=== PATIENT | male | born 1975 | race Caucasian/White ===

== ENCOUNTER 2021-12-24 09:47 | Outpatient (REF) | payer OTHER, SELFPAY ==
[2021-12-24 11:22] LABS: MANUAL DIFF FLAG NO
[2021-12-24 11:41] LABS: Basophils Absolute Auto 0.1 X10*3/uL (0.0-0.2); Basophils Percent Auto 0.7 % (0-2); Eosinophils Absolute Auto 0.2 X10*3/uL (0.0-0.4); Eosinophils Percent Auto 2.2 % (0-4); Hematocrit 42.3 % (42.0-52.0); Hemoglobin 13.7 g/dl (14.0-18.0); Imm Gran Abs Auto 0.03 X10*3/uL (0.00-0.03); Imm Gran Pct Auto 0.4 % (0.0-0.4); Lymphocytes Absolute Auto 1.7 X10*3/uL (1.2-4.9); Lymphocytes Percent Auto 25.7 % (20-40); Mean Corpuscular HGB Conc 32.4 g/dl (31.0-36.0); Mean Corpuscular Hemoglobin 31.6 pg (27.0-33.0); Mean Corpuscular Volume 97.5 fL (80.0-98.0); Mean Platelet Volume 9.8 fL (9.4-12.4); Monocytes Absolute Auto 0.7 X10*3/uL (0.1-1.2); Monocytes Percent Auto 9.8 % (2-11); Neutrophils Absolute Auto 4.1 x10*3/uL (2.0-8.3); Neutrophils Percent Auto 61.2 % (45-73); Platelet Count 356 X10*3/uL (160-400); Red Blood Count 4.34 X10*6/uL (4.60-5.80); Red Cell Distribution Width 12.8 % (11.0-16.0); White Blood Count 6.8 X10*3/uL (4.8-10.8)
[2021-12-24 11:50] LABS: Estimated Average Glucose 108 mg/dL; Hemoglobin A1c % 5.4 %
[2021-12-24 12:16] LABS: Prostate Specific Antigen Scr 0.49 ng/mL (<0.05-4.0); TSH reflex Free T4 0.26 uIU/mL (0.32-4.0)
[2021-12-24 12:25] LABS: Alanine Aminotransferase 30 U/L (0-40); Albumin Level 4.7 g/dL (3.5-5.0); Alkaline Phosphatase 61 U/L (39-117); Anion Gap 9 (12-20); Aspartate Amino Transferase 23 U/L (5-37); Bilirubin Total 0.5 mg/dL (0.0-1.0); Blood Urea Nitrogen 19 mg/dL (9-16); Calcium 10.1 mg/dL (8.4-10.2); Carbon Dioxide 30 mmol/L (22-29); Chloride 105 mmol/L (96-108); Cholesterol 268 mg/dL; Estimated Glomerular Filt Rate > 60; Glucose Fasting 106 mg/dL (60-99); HDL Cholesterol 65 mg/dL; LDL Cholesterol Calculated 162 mg/dl; Potassium 5.3 mmol/L (3.3-5.1); Sodium 139 mmol/L (135-145); Total Protein 7.8 g/dL (6.5-8.0); Triglycerides 209 mg/dL
[2021-12-24 13:01] LABS: Free T4 (Free Thyroxine) 0.78 ng/dL (0.71-1.85)
== END 2021-12-24 09:48 | disposition home or self-care (01) ==
LOC: HO.WFDLDS 09:47
PROVIDERS: Visit Provider Family Medicine
DX: Z00.00 Encounter for general adult medical examination without abnormal findings (principal); Z12.5 Encounter for screening for malignant neoplasm of prostate; R73.01 Impaired fasting glucose
CPT/HCPCS: 36415; 80053; 80061; 83036; 84153; 84439; 84443; 85025

== ENCOUNTER 2022-01-14 10:36 | Outpatient (REF) | payer OTHER, SELFPAY ==
--- NOTE | ~2022-01-14 | US_ITS ---
EXAMINATION: US THYROID CLINICAL INFORMATION: Nontoxic single thyroid nodule. COMPARISON: None TECHNIQUE: Linear transducer grayscale and color Doppler examination with attention to the region of the thyroid. FINDINGS: SIZE: Measurements of the thyroid lobes and nodules are given in sagittal, anteroposterior and transverse dimensions respectively. Right Thyroid Lobe: 6.0 x 1.5 x 1.9 cm, volume 8.9 mL. Parenchyma: The gland echotexture is homogeneous. Thyroid vascularity is normal. Left Thyroid Lobe: 5.5 x 1.4 x 1.7 cm, volume 6.8 mL. Parenchyma: The gland echotexture is homogeneous. Thyroid vascularity is normal. Isthmus: 0.2 cm in maximum AP dimension. No focal thyroid nodule is seen. NODES: No lymphadenopathy is seen in the tissue surrounding the thyroid gland. US/US thyroid IMPRESSION: Normal thyroid ultrasound.
== END 2022-01-14 10:37 | disposition home or self-care (01) ==
LOC: HO.HMGCX 10:36
PROVIDERS: Visit Provider Family Medicine
DX: E04.1 Nontoxic single thyroid nodule (principal)
CPT/HCPCS: 76536

== ENCOUNTER → 2022-03-07 09:55 | Outpatient (BNVA) | payer OTHER, SELFPAY | PROVIDERS: PCP Family Medicine; Referring Provider Family Medicine; Visit Provider Nurse Practitioner | DX: K92.1 Melena (principal); K21.9 Gastro-esophageal reflux disease without esophagitis; K58.0 Irritable bowel syndrome with diarrhea | CPT/HCPCS: 99202 ==

== ENCOUNTER 2022-03-25 11:09 | Outpatient (REF) | payer OTHER, SELFPAY ==
[2022-03-25 13:16] LABS: MANUAL DIFF FLAG NO
[2022-03-25 13:25] LABS: Basophils Absolute Auto 0.1 X10*3/uL (0.0-0.2); Basophils Percent Auto 0.9 % (0-2); Eosinophils Absolute Auto 0.2 X10*3/uL (0.0-0.4); Eosinophils Percent Auto 3.6 % (0-4); Hematocrit 41.1 % (42.0-52.0); Hemoglobin 13.3 g/dl (14.0-18.0); Imm Gran Abs Auto 0.01 X10*3/uL (0.00-0.03); Imm Gran Pct Auto 0.2 % (0.0-0.4); Lymphocytes Percent Auto 30.3 % (20-40); Mean Corpuscular HGB Conc 32.4 g/dl (31.0-36.0); Mean Corpuscular Hemoglobin 32.2 pg (27.0-33.0); Mean Corpuscular Volume 99.5 fL (80.0-98.0); Mean Platelet Volume 9.5 fL (9.4-12.4); Monocytes Absolute Auto 0.7 X10*3/uL (0.1-1.2); Monocytes Percent Auto 10.9 % (2-11); Neutrophils Absolute Auto 3.5 x10*3/uL (2.0-8.3); Neutrophils Percent Auto 54.1 % (45-73); Platelet Count 378 X10*3/uL (160-400); Red Blood Count 4.13 X10*6/uL (4.60-5.80); Red Cell Distribution Width 12.8 % (11.0-16.0); White Blood Count 6.4 X10*3/uL (4.8-10.8)
[2022-03-25 13:36] LABS: C Reactive Protein 0.02 mg/dL (< or = 0.50)
[2022-03-25 13:43] LABS: Alanine Aminotransferase 24 U/L (0-40); Albumin Level 4.6 g/dL (3.5-5.0); Alkaline Phosphatase 66 U/L (39-117); Anion Gap 12 (12-20); Aspartate Amino Transferase 24 U/L (5-37); Bilirubin Total 0.3 mg/dL (0.0-1.0); Blood Urea Nitrogen 26 mg/dL (9-16); Calcium 10.1 mg/dL (8.4-10.2); Carbon Dioxide 29 mmol/L (22-29); Chloride 104 mmol/L (96-108); Cholesterol 270 mg/dL; Estimated Glomerular Filt Rate > 60; Glucose Random 62 mg/dL (60-115); HDL Cholesterol 78 mg/dL; Iron 37 mcg/dL (45-160); LDL Cholesterol Calculated 151 mg/dl; Percent Iron Saturation 7 % (15-50); Potassium 5.2 mmol/L (3.3-5.1); Sodium 140 mmol/L (135-145); Total Iron Binding Capacity 494 mcg/dL (228-428); Total Protein 7.6 g/dL (6.5-8.0); Triglycerides 208 mg/dL; Unsaturated Iron Binding 457 ug/dL
[2022-03-25 13:52] LABS: TSH reflex Free T4 0.27 uIU/mL (0.32-4.0)
[2022-03-25 14:02] LABS: Ferritin 15 ng/mL (20-250)
[2022-03-25 14:34] LABS: Folate 11.6 ng/mL (> or = 4.0); Vitamin B12 324 pg/mL (200-900)
[2022-03-25 14:37] LABS: Free T4 (Free Thyroxine) 0.87 ng/dL (0.71-1.85)
[2022-03-27 13:21] LABS: Gliadin Deamidated IgG Ab <1.0 U/mL; Transglutaminase Ab IgG <1.0 U/mL; Transglutaminase IgA <1.0 U/mL
== END 2022-03-25 11:10 | disposition home or self-care (01) ==
LOC: HO.WFDLDS 11:09
PROVIDERS: Family Medicine; Visit Provider Nurse Practitioner
DX: Z00.00 Encounter for general adult medical examination without abnormal findings (principal); K58.0 Irritable bowel syndrome with diarrhea; E87.5 Hyperkalemia; D64.9 Anemia, unspecified; E53.8 Deficiency of other specified B group vitamins; E78.5 Hyperlipidemia, unspecified; R79.89 Other specified abnormal findings of blood chemistry
CPT/HCPCS: 36415; 80053; 80061; 82607; 82728; 82746; 83540; 84439; 84443; 85025; 86140; 86258; 86364

== ENCOUNTER → 2022-04-15 07:48 | Outpatient (BNVA) | payer OTHER, SELFPAY | PROVIDERS: PCP Family Medicine; Referring Provider Family Medicine; Visit Provider Nurse Practitioner | DX: K58.0 Irritable bowel syndrome with diarrhea (principal) | CPT/HCPCS: 99212 ==

== ENCOUNTER → 2022-05-06 07:36 | Outpatient (BNVA) | payer OTHER, SELFPAY | PROVIDERS: PCP Family Medicine; Referring Provider Family Medicine; Visit Provider Nurse Practitioner | DX: K58.0 Irritable bowel syndrome with diarrhea (principal); I10 Essential (primary) hypertension; Z79.899 Other long term (current) drug therapy | CPT/HCPCS: 99212 ==

== ENCOUNTER 2022-09-02 08:27 | Day surgery (SDC) | payer OTHER, SELFPAY ==
[2022-08-28 11:26] VITALS: BMI 24.3
--- NOTE | 2022-09-02 08:43 | MHC.SHP ---
Pre-Procedural Eval Section A Date of Service: 09/02/22 Section B Chief Complaint: diarrhea Relevant Family History (Specify if Yes): No Relevant Social History: Other (specify) (occ THC usage ) Present Medications: see Short Stay Collaborative assessment Medical History: Significant History (Chronic pain Left thyroid nodule, HTN) History of Previous Operations: Relevant previous surgery/procedure and date(s) (back and knee surgery) Allergies: Allergies Allergy/AdvReac Type Severity Reaction Status Date / Time amoxicillin Allergy Unknown Unknown Verified 04/15/22 08:00 Review of Systems Sugical H&P ROS: Negative: Constitution, Cardiovascular, Respiratory, Neurological, Psychiatric, Hem-Onc, Allergic/Immunologic, Gastrointestinal, Genitourinary, Musculoskeletal, Integumentary, Endocrine and Eyes/Ears/Nose/Throat Exam Surgical H&P Exam: Normal: HEENT, Normal: Heart, Normal: Lungs, Normal: Extremities, Normal: Abdomen, Normal: Skin and Normal: Neurological Plan Diagnosis/Plan: Unchanged I have reviewed the history and physical and performed a pertinent physical examination on my patient. No changes have occurred unless specified.
[2022-09-02 08:55] VITALS: BMI 26.2
[2022-09-02 09:08] VITALS: BP 113/78; PULSE 69; RESP 18; TEMP 36.8; O2SAT 98; BMI 26.2
--- NOTE | 2022-09-02 09:22 | HO.ANESPROP2 ---
HPI - Anesthesia Eval Consult details Narrative: 47 M for colonoscopy [facility] Active Problems Active Problems: All Active Problems (Updated 03/25/22 @ 11:52 by Jeevan Escobedo) Mild anemia (Acute) Essential hypertension (Acute) Irritable bowel syndrome with diarrhea (Acute) Alcohol abuse (Acute) Fatigue (Acute) Hyperkalemia (Acute) Hyperlipidemia (Acute) Borderline anemia (Acute) Low TSH level (Acute) Elevated fasting blood sugar (Acute) Screening for prostate cancer (Acute) Anxiety and depression (Acute) Blood in stool (Acute) Low back pain (Acute) GERD (gastroesophageal reflux disease) (Acute) Encounter for general adult medical examination without abnormal findings (Acute) Left thyroid nodule (Acute) Chronic pain (Acute) Past Medical History Medical History Chronic pain Left thyroid nodule Family History Family History Father HTN (hypertension) Stroke Mother CVD (cardiovascular disease) Brother No problems noted. Sister No problems noted. Son No problems noted. Daughter No problems noted. Daughter No problems noted. Daughter No problems noted. Family history of problems with anesthesia: No Surgical History Surgical History H/O microdiscectomy History of back surgery History of knee surgery History of Problems with Anesthesia: No Social History Social History Housing: House Patient Tobacco Use Status: Current everyday Tobacco user Tobacco use type: Cigar e-Cigarette/Vaping Use: Never Used Second Hand Smoke Exposure: No Use of substances other than those prescribed or required for medical reasons: No Substance Use Type Other:: off suboxone x 2 years Are you DNR?: No Advance Directives: No Advance Directives Information Provided: Yes service: No Current occupational status: employed Current occupational exposures/hazards: No Cognitive needs: No Hearing needs: No Vision needs: No Meds Allergies Allergy/AdvReac Type Severity Reaction Status Date / Time amoxicillin Allergy Unknown Unknown Verified 04/15/22 08:00 Exam Exam Date and Time: September 02, 2022921 Height,Weight and Vital Signs: Height 6 ft 3 in Weight 210 lb Last Vital Signs Temp 98.2 F 09/02/22 09:08 Pulse 69 09/02/22 09:08 Resp 18 09/02/22 09:08 BP 113/78 09/02/22 09:08 Pulse Ox 98 09/02/22 09:08 O2 Del Method 09/02/22 09:08 Airway Mallampati Class: I TM Dist: >3cm Neck ROM: Full Loose/Missing/Broken Teeth: Yes Assessment and Plan Assessment Anesthesia Assessment: Anesthesia Plan Discussed and Chart Reviewed Final Anesthetic Review Family History of Problems with Anesthesia: No History of Problems with Anesthesia: No NPO: Yes ASA Class: II Final Preanesthetic Review: No Changes in Pt Med Stat, Meds/Allgs Chart Reviewed, Consent Obtained/Reviewed and Anes Risks/Benef Reviewed Patient Risk: Low Procedure Risk: Low Anesthetic Plan Anesthetic Plan: MAC: Disposition: Standard PACU
--- NOTE | 2022-09-02 09:29 | P.OP_ITS ---
Operative Note Operative Note Date of Service: 09/02/22 Narrative: Operative Information Procedure Description: Colonoscopy Indication: diarrhea Anesthesia: MAC COLONOSCOPY Instrument: Olympus variable stiffness pediatric scope 190L Colonoscopy Monitoring: Vital signs and clinical assessment, continuous EKG monitoring, Pulse oximetry, Carbon Dioxide monitoring and blood pressure monitoring were done throughout the procedure. Colon withdrawal time was 7 minutes. Procedure: The patient was placed in the left lateral decubitis position and pre-procedure medications were administered. After a digital rectal examination of the ano-rectum, the video colonoscope was inserted into the rectum and advanced through the colon to the cecum/TI. The colonoscope was slowly withdrawn in a retrograde panoramic fashion and the colon mucosa was carefully examined including a retroflexed view of the rectum. Findings and interventions are described below. Procedure Difficulty: easy Findings: Terminal Ileum-normal, bx taken random colon bx taken right sided retroflexion---nml Cecum:normal Ascending Colon: normal Transverse Colon -normal Descending Colon:normal Sigmoid Colon: normal Rectum: Retroflexion with large internal hemorrhoids, grade I with red lance Anorectum - normal Colon preparation: [place] Bowel Preparation Scale Right colon; 2 Transverse colon: 2 Left colon; 3 (0 = Unprepared colon segment with mucosa not seen due to solid stool that cannot be cleared. 1 = Portion of mucosa of the colon segment seen, but other areas of the colon segment not well seen due to staining, residual stool and/or opaque liquid. 2 = Minor amount of residual staining, small fragments of stool and/or opaque liquid, but mucosa of colon segment seen well. 3 = Entire mucosa of colon segment seen well with no residual staining, small fragments of stool or opaque liquid) Impression and Post Procedure Diagnosis: internal hemorrhoids Plan: High fiber diet leaflet Avoid straining at stool, epsom salts and sitz bath, anusol supps or cream Repeat Colonoscopy in 10 years or earlier if clinically indicated Recommend EGD for completing diarrhea work up. Above findings were reviewed with the patient and relevant handouts were provided if indicated.
[2022-09-02] MEDS: Lactated Ringers 1,000 ML 50 ML IVCONT (09:35)
[2022-09-02 10:00] VITALS: BP 119/76; PULSE 66; RESP 17; TEMP 36.1; O2SAT 98
[2022-09-02 10:15] VITALS: BP 112/85; PULSE 66; RESP 16; TEMP 36.1; O2SAT 98
== END 2022-09-02 11:09 | disposition home or self-care (01) ==
PROVIDERS: PCP Family Medicine; Visit Provider Internal Medicine Gastroenterology
PROC: 0DJD8ZZ Inspection of Lower Intestinal Tract, Via Natural or Artificial Opening Endoscopic (ICD-10-PCS; CPT 45378; principal; 2022-09-02 09:20)
DX: K58.0 Irritable bowel syndrome with diarrhea (principal); K64.0 First degree hemorrhoids; I10 Essential (primary) hypertension; M54.50 Low back pain, unspecified; E04.1 Nontoxic single thyroid nodule; G89.29 Other chronic pain; Z98.890 Other specified postprocedural states; Z79.899 Other long term (current) drug therapy; Z88.1 Allergy status to other antibiotic agents; F12.90 Cannabis use, unspecified, uncomplicated; F17.200 Nicotine dependence, unspecified, uncomplicated
CPT/HCPCS: 45380; 88305

== ENCOUNTER 2024-07-05 15:46 | Outpatient (AMB) | payer OTHER, SELFPAY ==
--- NOTE | 2024-07-05 15:49 | A.OFFPC_ITS ---
Vital Signs 07/05/24 15:56 Height 6 ft 3 in Weight 204 lb 2 oz BMI 25.5 BP 130/70 Blood Pressure Location Lt brachial Position Sitting Respiration 16 Pulse 91 Pulse Source Pulse Oximeter Temp 98 F Temp Source Tympanic Pulse Oximetry (%) 98 Oxygen Delivery Method Room Air Intake Visit Reasons: Annual PE Intake Note: PE Allergies amoxicillin Allergy (Unknown, Verified 07/05/24 15:50) Unknown Tobacco use date assessed: 03/25/22 Dental Screening Dental Screen Date: 07/05/24 Did you have a dental visit in the last 12 months?: Yes Did you have a dental problem in the last 6 months where you did not have access to dental care?: Yes Was dental information given to patient?: Patient has dentist HPI Annual PE HPI Details 49 y/o male presents for a CPE with f/u labs and health maintenance. No recent labs to review. Blood pressure today 130/70. He is on amlodipine 5mg daily. Has started drinking EtOH again. He notes it has been a rough couple years. HPI Comments History of Present Illness Details Documentation assistance for Glenn Callejas MD, was provided by Jeevan Escobedo, Manager [employer] on 07/05/2024 at 4:22 PM EST. I, Dr. Callejas, have read, observed, and verified documentation. [facility] Medical History Chronic pain Left thyroid nodule Surgical History H/O microdiscectomy History of back surgery History of knee surgery Family History Father HTN (hypertension) Stroke Mother CVD (cardiovascular disease) Brother No problems noted. Sister No problems noted. Son No problems noted. Daughter No problems noted. Daughter No problems noted. Daughter No problems noted. Social History (Updated 07/05/24 @ 15:52 by Lina Zelaya) Housing: House Patient Tobacco Use Status: Current everyday Tobacco user Tobacco use type: Cigar e-Cigarette/Vaping Use: Never Used Second Hand Smoke Exposure: No Use of substances other than those prescribed or required for medical reasons: No service: No Current occupational status: employed Current occupation: [employer] Current occupational exposures/hazards: No Cognitive needs: No Hearing needs: No Vision needs: No Questionnaire PHQ-9 Over the last 2 weeks, how often have you been bothered by any of the following problems? 1. Little interest or pleasure in doing things: not at all 2. Feeling down, depressed, or hopeless: several days 3. Trouble falling or staying asleep, or sleeping too much: several days 4. Feeling tired or having little energy: several days 5. Poor appetite or overeating: not at all 6. Feeling bad about yourself - or that you are a failure or have let yourself or your family down: not at all 7. Trouble concentrating on things, such as reading the newspaper or watching television: not at all 8. Moving or speaking so slowly that other people could have noticed. Or the opposite - being so fidgety or restless that you have been moving around a lot more than usual: not at all 9. Thoughts that you would be better off or of hurting yourself in some way: not at all Total score: 3 Depression Screening Interpretation: Negative Depression Screening Done: Yes 35557 - PHQ-9 Billing: Yes Source: Developed by Drs. Yasmani Meneses, Laura Cronin, Thony Arias and colleagues, with an educational neftali from [employer]. Thrive Questionnaire Date Thrive assessed: 07/05/24 I am a: Patient What is your living situation today?: I have a steady place to live Within the past 12 months, did the food you bought not last and you didn't have the money to get more?: Never true Within the past 12 months, did you worry whether your food would run out before you got money to buy more?: Never true Do you have trouble paying for medicines?: No Do you have trouble getting transportation to medical appointments?: No Do you have trouble paying your heating and electricity bill?: No Do you have trouble taking care of your child, family member or friend?: No Do you have trouble with day-to-day activities such as bathing, preparing meals, shopping, managing finances, etc.?: No Are you currently unemployed and looking for a job?: No Are you interested in more education?: No Please select the resources that you would like help with: None Currently or been in a relationship where the following occur: No concerns reported THRIVE Score: 0 AUDIT C Alcohol Use Questionnaire (AUDIT-C) 1. How often do you have a drink containing alcohol?: 2-3 times a week 2. How many drinks containing alcohol do you have on a typical day when you are drinking?: 5 or 6 3. How often do you have six or more drinks on one occasion?: Monthly Total Score: 7 Score Reviewed/Action Taken: Yes TRISH-7 AMB Questionnaire TRISH-7 Date TRISH - 7 assessed: 07/05/24 Feeling nervous, anxious, or on edge: 0 = Not at all Not being able to stop or control worryin = Several days Worrying too much about different things: 1 = Several days Trouble relaxin = Not at all Being so restless that it is hard to sit still: 0 = Not at all Becoming easily annoyed or irritable: 0 = Not at all Feeling afraid as if something awful might happen: 0 = Not at all Total TRISH-7 score (0-4 normal; 5-9 mild; 10-14 moderate; 15-21 severe): 2 Source: Developed by Drs. Yasmani Meneses, Laura Cronin, Thony Arias and colleagues, with an educational neftali from [employer]. TRISH-7 Assessment Billing TRISH-7 Assessment Tool: TRISH-7 Assessment 38372 Review of Systems Const Denies chills, Denies fatigue, Denies fever(s), Denies headache(s) and Denies weakness Eyes Denies change in vision ENT Denies dizziness, Denies headache(s), Denies hearing loss, Denies nasal congestion, Denies sinus pain, Denies sinus pressure and Denies sore throat Card Denies chest pain, Denies lightheadedness, Denies dyspnea and Denies other (palpitations) Resp Denies cough, Denies dyspnea and Denies wheezing GI Denies abdominal pain, Denies melena, Denies hematochezia, Denies change in bowel habits, Denies dyspepsia and Denies nausea Denies hematuria and Denies dysuria Musc Denies abnormal gait, Denies myalgias, Denies arthralgias, Denies numbness and Denies tingling Skin/Breast Denies rash, Denies unusual bruising and Denies wounds Neuro Denies abnormal gait, Denies dizziness, Denies headache(s), Denies memory loss, Denies numbness, Denies Sensory deficit (Neuro), Denies tingling and Denies weakness Psych Denies anxiety, Denies depression and Denies memory loss Endo Denies cold intolerance, Denies fatigue, Denies heat intolerance, Denies polydipsia and Denies polyuria Brandin/Lymph Denies easy bleeding and Denies easy bruising Aller/Immun Denies wheezing Physical exam (Primary Care) Vital Signs: Last Vital Signs Temp 98 F 07/05/24 15:56 Pulse 91 07/05/24 15:56 Resp 16 07/05/24 15:56 BP 130/70 07/05/24 15:56 Pulse Ox 98 07/05/24 15:56 Oxygen Delivery Method Room Air 07/05/24 15:56 BMI result Body Mass Index 25.5 Tobacco/Smoking Status: Tobacco use Status Tobacco use date assessed 03/25/22 07/05/24 15:59 Patient Tobacco Use Status Current everyday Tobacco 07/05/24 15:59 Tobacco use type Cigar 07/05/24 15:59 e-Cigarette/Vaping Use Never Used 07/05/24 15:59 PHQ-9: PHQ-9 Score PHQ-9: Total score 3 07/05/24 16:22 Depression Screening Interpretation: Negative Thrive Assessment: Date of Thrive Assessment Date Thrive assessed 07/05/24 07/05/24 15:59 Currently or been in a relationship where the following occur: No concerns reported Const General: no acute distress, well developed, alert and awake Nutritional Appearance: well nourished Orientation/consciousness: patient oriented x3 HENMT Head: Yes normocephalic and Yes atraumatic Ears: hearing grossly normal bilaterally and TM's normal bilaterally General nose exam: Normal external nose present and Normal nares present Mouth: Normal oral and palatal mucosa present and moist mucous membranes Teeth and gingiva: dentition normal Throat: Yes posterior oropharynx normal Eyes General: appearance normal, both eyes and all related structures Pupils: Equal, round and reactive pupils present and Pupil accommodation reflex normal EOM: EOMs intact bilaterally Neck Neck: Yes normal visual inspection, Yes no lymphadenopathy and Yes trachea midline Thyroid: Thyroid normal Carotids: no bruits Lymphatic: no lymphadenopathy noted Chest Chest palpation & inspection: normal inspection of the chest Resp Effort & Inspection: normal respiratory effort Auscultation: clear to auscultation bilaterally Cardio Rate: regular rate Rhythm: regular rhythm Heart sounds: S1 normal heart sound present, S2 normal heart sound present, no gallops, no murmurs and no rubs Bruits: no abdominal aortic bruits and no carotid bruits GI Palpation (GI): No Abdominal aortic bruit present, Soft to palpation, nontender, No hepatosplenomegaly present and No Rebound tenderness present Auscultation: normal bowel sounds General: Yes no CVA tenderness Back/Spine/Pelvis Back: no CVA tenderness Cervical Spine: cervical ROM normal and No Cervical spine tenderness Thoracic/Lumbar Spine: thoraco-lumbar ROM normal, No pain with thoraco-lumbar ROM, No thoracic spinal tenderness and No lumbar spinal tenderness Skin Lesions: no lesions Rashes: no rashes Trauma: no lacerations or abrasions Wounds: no wounds Nails: normal Neuro General: patient oriented x3 Cranial nerves: Yes Equal, round and reactive pupils present Cognition (Neuro): normal cognition Gait exam (Neuro): Normal gait present Motor exam (neuro): 5/5 motor strength present throughout Sensory Exam: No Sensory deficit (Neuro) Deep tendon reflexes (DTR's): Right patellar reflex intensity grade: 2+ and Left patellar reflex intensity grade: 2+ Extrem General: Yes normal to inspection and No edema Psych Appearance: grossly normal Affect: normal affect Attitude: cooperative Thought process: Normal thought process present Assessment and Plan Assessment & Plan (1) Adult general medical exam: Code(s): Z00.00 - Encounter for general adult medical examination without abnormal findings Plan: 49-year-old?male?presents?for?complete?physical?exam Exam?today?is?within?normal?limits Encouraged?healthy?diet?with?active?lifestyle?and?plenty?of?exercise (2) Essential hypertension: Code(s): I10 - Essential (primary) hypertension Plan: Blood?pressure?is?controlled.??Goal?is?less?than?140/90 Continue?current?medication (3) Alcohol abuse: Code(s): F10.10 - Alcohol abuse, uncomplicated Plan: Ongoing?alcohol?use Encouraged?weaning?and?cessation (4) Screening for prostate cancer: Code(s): Z12.5 - Encounter for screening for malignant neoplasm of prostate Plan: Check?PSA (5) Screening for colon cancer: Code(s): Z12.11 - Encounter for screening for malignant neoplasm of colon Plan: History?of?hemorrhoids?and?GI?bleeding No?current?bleeding Encouraged?good?hydration?and?avoid?strain Follow-up?with?Gastroenterology?as?recommended Orders: Orders Complete Blood Count Auto Diff Today Z00.00 - Encounter for general adult medical examination without abnormal findings Lipid Panel Today Z00.00 - Encounter for general adult medical examination without abnormal findings TSH reflex Free T4 Today Z00.00 - Encounter for general adult medical examination without abnormal findings Vitamin B12 and Folate Today E53.8 - Deficiency of other specified B group vitamins Comprehensive [place]. Panel Fast Today Z00.00 - Encounter for general adult medical examination without abnormal findings Microalbumin, Random (w Creat) Today I10 - Essential (primary) hypertension Prostate Specific Antigen Scr Today Z12.5 - Encounter for screening for malignant neoplasm of prostate UA and rflx microscopic Today Z00.00 - Encounter for general adult medical examination without abnormal findings Coding Level of Care Code Est Pt Level 3 (94833) Est Pt Prev Care 40-64y(99037) Diagnoses Adult general medical exam Z00.00 Essential hypertension I10 Alcohol abuse F10.10 Screening for prostate cancer Z12.5 Screening for colon cancer Z12.11 Additional Codes TRISH-7 Assessment Billing - TRISH-7 Assessment Tool: TRISH-7 Assessment 72126 ([id number])
[2024-07-05 15:56] VITALS: BP 130/70; PULSE 91; RESP 16; TEMP 36.6; O2SAT 98; BMI 25.5
== END 2024-07-05 16:37 | disposition home or self-care (01) ==
PROVIDERS: PCP Family Medicine; Visit Provider Family Medicine
DX: Z00.00 Encounter for general adult medical examination without abnormal findings (principal); I10 Essential (primary) hypertension; F10.10 Alcohol abuse, uncomplicated; Z12.5 Encounter for screening for malignant neoplasm of prostate; Z12.11 Encounter for screening for malignant neoplasm of colon
CPT/HCPCS: 99396

== ENCOUNTER 2024-08-23 09:57 | Outpatient (REF) | payer OTHER, SELFPAY ==
[2024-08-23 10:59] LABS: MANUAL DIFF FLAG NO
[2024-08-23 11:23] LABS: Basophils Absolute Auto 0.1 X10*3/uL (0.0-0.2); Basophils Percent Auto 0.7 % (0-2); Eosinophils Absolute Auto 0.2 X10*3/uL (0.0-0.4); Eosinophils Percent Auto 2.2 % (0-4); Hematocrit 41.8 % (42.0-52.0); Hemoglobin 13.4 g/dl (14.0-18.0); Imm Gran Abs Auto 0.02 X10*3/uL (0.00-0.03); Imm Gran Pct Auto 0.2 % (0.0-0.4); Lymphocytes Absolute Auto 2.1 X10*3/uL (1.2-4.9); Lymphocytes Percent Auto 25.1 % (20-40); Mean Corpuscular HGB Conc 32.1 g/dl (31.0-36.0); Mean Corpuscular Hemoglobin 30.1 pg (27.0-33.0); Mean Corpuscular Volume 93.9 fL (80.0-98.0); Monocytes Absolute Auto 0.6 X10*3/uL (0.1-1.2); Monocytes Percent Auto 7.4 % (2-11); Neutrophils Absolute Auto 5.5 x10*3/uL (2.0-8.3); Neutrophils Percent Auto 64.4 % (45-73); Platelet Count 328 X10*3/uL (160-400); Red Blood Count 4.45 X10*6/uL (4.60-5.80); Red Cell Distribution Width 13.1 % (11.0-16.0); White Blood Count 8.5 X10*3/uL (4.8-10.8)
[2024-08-23 11:54] LABS: Alanine Aminotransferase 23 U/L (0-40); Albumin Level 4.1 g/dL (3.5-5.0); Alkaline Phosphatase 75 U/L (39-117); Anion Gap 11 (12-20); Aspartate Amino Transferase 21 U/L (5-37); Bilirubin Total 0.2 mg/dL (0.0-1.0); Blood Urea Nitrogen 17 mg/dL (9-16); Calcium 9.4 mg/dL (8.4-10.2); Carbon Dioxide 27 mmol/L (22-29); Chloride 107 mmol/L (96-108); Cholesterol 197 mg/dL (<200); Estimated Glomerular Filt Rate > 60; Glucose Fasting 139 mg/dL (60-99); HDL Cholesterol 61 mg/dL (>40); LDL Cholesterol Calculated 113 mg/dL (<100); Potassium 4.1 mmol/L (3.3-5.1); Sodium 141 mmol/L (135-145); Total Protein 7.1 g/dL (6.5-8.0); Triglycerides 119 mg/dL (<150)
[2024-08-23 12:10] LABS: TSH reflex Free T4 0.33 uIU/mL (0.32-4.0)
[2024-08-23 12:19] LABS: Folate 4.3 ng/mL (> or = 4.0); Prostate Specific Antigen Scr 0.63 ng/mL (<0.05-4.0); Vitamin B12 455 pg/mL (200-900)
[2024-08-23 15:07] LABS: Appearance Urine Clear; Color Urine Yellow; Glucose Urine UA Negative (Negative); Leukocyte Esterase Urine Negative (Negative); Nitrite Urine Negative (Negative); Urine Blood Negative (Negative); Urine Ketones Negative (Negative); Urine Protein Negative (Neg-Trace)
[2024-08-23 15:18] LABS: Creatinine Urine 103.97 mg/dL; Microalbumin Urine < 5.0 mg/L
== END 2024-08-23 09:58 | disposition home or self-care (01) ==
LOC: HO.WFDLDS 09:57
PROVIDERS: Visit Provider Family Medicine
DX: Z00.00 Encounter for general adult medical examination without abnormal findings (principal); I10 Essential (primary) hypertension; Z12.5 Encounter for screening for malignant neoplasm of prostate; E53.8 Deficiency of other specified B group vitamins
CPT/HCPCS: 36415; 80053; 80061; 81003; 82043; 82570; 82607; 82746; 84153; 84443; 85025

== ENCOUNTER → 2024-09-13 11:19 | Outpatient (BNVA) | payer OTHER, SELFPAY | PROVIDERS: PCP Family Medicine; Visit Provider Family Medicine ==

== ENCOUNTER → 2024-09-13 11:19 | Outpatient (AMB) | payer OTHER, SELFPAY ==
--- NOTE | 2024-09-13 11:17 | MHC.PC.OV ---
Intake Visit Reasons: lab review Allergies amoxicillin Allergy (Unknown, Verified 09/13/24 11:18) Unknown Tobacco use date assessed: 03/25/22 Dental Screening Dental Screen Date: 07/05/24 HPI lab review HPI Details The patient is a 49-year-old male presenting with a follow-up for anemia, which was identified in 2021. At that time, laboratory findings indicated a mild chronic anemia with a possible relation to acute blood loss, associated with gastrointestinal bleeding. However, he has noted no current gastrointestinal bleeding symptoms. Prior laboratory evaluations in 2021 displayed anemia along with low iron levels, suggesting blood loss as a contributing factor. Upon evaluation in June, his labs still denoted a mild stable anemia, though the red blood cell size has normalized, indicating some improvement. Additionally, there was a previous concern for elevated blood sugar, initially noted in 2021. His hemoglobin A1c was 5.4 in 2020, and an increase in fasting glucose levels has been recently observed. The patient's LDL cholesterol was initially 162, then decreased to 151, and is now 113, but his goal LDL is less than 100. HDL was assessed at 61, which is satisfactory. The patient's B12 levels are normal. There was a recent evaluation for prostate cancer via PSA, which yielded a value of 0.633, well within normal limits. - Labs: - Hemoglobin and Hematocrit: 13.84 and 41.8 - Mean Corpuscular Volume (MCV): 93.9 - LDL Cholesterol: 113 - HDL Cholesterol: 61 - PSA Level: 0.633 - Hemoglobin A1c: Previously 5.4 - TSH: 0.33 - Vitamin B12: Normal - Electrolytes: Normal - Liver Enzymes: Normal - Kidney Function: Normal - Urinalysis: Normal [facility] Medical History Chronic pain Left thyroid nodule Surgical History H/O microdiscectomy History of back surgery History of knee surgery Family History Father HTN (hypertension) Stroke Mother CVD (cardiovascular disease) Brother No problems noted. Sister No problems noted. Son No problems noted. Daughter No problems noted. Daughter No problems noted. Daughter No problems noted. Social History (Updated 07/05/24 @ 15:52 by Lina Zelaya [facility]) Housing: House Patient Tobacco Use Status: Current everyday Tobacco user Tobacco use type: Cigar e-Cigarette/Vaping Use: Never Used Second Hand Smoke Exposure: No service: No Current occupational status: employed Current occupation: [employer] Current occupational exposures/hazards: No Cognitive needs: No Hearing needs: No Vision needs: No Questionnaire Thrive Questionnaire Date Thrive assessed: 07/05/24 TRISH-7 AMB Questionnaire TRISH-7 Date TRISH - 7 assessed: 07/05/24 Source: Developed by Drs. Yasmani Meneses, Laura Cronin, Thony Arias and colleagues, with an educational neftali from [employer]. Review of Systems Const Denies chills, Denies fatigue, Denies fever(s), Denies headache(s) and Denies weakness ENT Denies dizziness and Denies headache(s) Card Denies chest pain, Denies lightheadedness, Denies dyspnea and Denies other (Palpitations) Resp Denies cough, Denies dyspnea, Denies wheezing and Denies other ( shortness of breath) Musc Denies numbness and Denies tingling Neuro Denies dizziness, Denies headache(s), Denies numbness, Denies tingling, Denies paresthesias and Denies weakness Psych Denies anxiety and Denies depression Endo Denies fatigue Aller/Immun Denies wheezing Physical exam (Primary Care) Tobacco/Smoking Status: Tobacco use Status Tobacco use date assessed 03/25/22 09/13/24 11:19 Patient Tobacco Use Status Current everyday Tobacco 09/13/24 11:19 Tobacco use type Cigar 09/13/24 11:19 e-Cigarette/Vaping Use Never Used 09/13/24 11:19 Thrive Assessment: Date of Thrive Assessment Date Thrive assessed 07/05/24 09/13/24 11:19 Telehealth Telehealth Telehealth Platform: Telephone Location of provider rendering services: practice address Location of patient: address on file Patient Identification confirmed using: Name, : Yes Telehealth method: voice only Patient verbally consented to treatment: Yes Patient verbally consented to billing insurance company: Yes Patient informed of any privacy concerns related to visit: Yes Minutes spent on Phone/Video with Pt.: 8 Coding Level of Care Code Tele Est Pt Level 2 (60671) Diagnoses Mild anemia D64.9 History of bloody stools Z87.19 History of iron deficiency Z86.39 Screening for prostate cancer Z12.5 Elevated fasting blood sugar R73.01 Assessment & Plan Assessment & Plan (1) Mild anemia: Code(s): D64.9 - Anemia, unspecified Category: Medical Plan: Ongoing?stable?anemia. He?had?had?a?history?of?iron-deficiency?and?blood?in?stools. B12?level?was?within?normal?limits However,?he?no?longer?has?blood?in?stools Will?recheck?this?along?with?iron?levels.??Will?also?check?reticulocyte?count (2) History of bloody stools: Code(s): Z87.19 - Personal history of other diseases of the digestive system Category: Medical Plan: No?further?bleeding (3) History of iron deficiency: Code(s): Z86.39 - Personal history of other endocrine, nutritional and metabolic disease Category: Medical Plan: History?of?low?iron Had?had?GI?bleeding?at?the?time. Rechecking?iron?level (4) Screening for prostate cancer: Code(s): Z12.5 - Encounter for screening for malignant neoplasm of prostate Category: Medical Plan: PSA?was?within?normal?range (5) Elevated fasting blood sugar: Code(s): R73.01 - Impaired fasting glucose Category: Medical Plan: History?of?elevated?fasting?blood?sugars?and?blood?sugars?rather?high?with?last?check;?139 Will?recheck?A1c?with?next?blood?draw Plan Patient was informed and verbally consented to the use of an ambient scribe for clinic note documentation during this visit. Orders: Orders IRON PROFILE Today Z86.39 - Personal history of other endocrine, nutritional and metabolic disease Hemoglobin A1c Today R73.01 - Impaired fasting glucose Complete Blood Count Auto Diff Today D64.9 - Anemia, unspecified, Z00.00 - Encounter for general adult medical examination without abnormal findings Reticulocyte Count Today D64.9 - Anemia, unspecified Basic Metabolic Panel Fasting Today R73.01 - Impaired fasting glucose
== END ==
LOC: HO.HMCFM 11:19
PROVIDERS: PCP Family Medicine; Visit Provider Family Medicine
DX: D64.9 Anemia, unspecified (principal); Z87.19 Personal history of other diseases of the digestive system; Z86.39 Personal history of other endocrine, nutritional and metabolic disease; Z12.5 Encounter for screening for malignant neoplasm of prostate; R73.01 Impaired fasting glucose